=== PATIENT | male | born 1960 | race Caucasian/White ===

== ENCOUNTER 2016-11-25 20:26 | Emergency (ER) | payer SELFPAY ==
[~2016-11-25] VITALS: Ht 175.3 cm; Wt 73.6 kg
[~2016-11-25 20:26] MED LIST: IPRA17I INH; MUCI600T PO; PRED20 PO; SPIRCAP INH; THIA100T PO; ZITH250T PO
[2016-11-25 21:23] VITALS: BP 123/91; PULSE 93; RESP 20; TEMP 98.5; O2SAT 93
== END 2016-11-25 23:41 | disposition left against medical advice (07) ==
LOC: PHED 20:26
DX: F10.10 Alcohol abuse, uncomplicated (principal)
CPT/HCPCS: 99281

== ENCOUNTER 2017-05-03 02:56 | Emergency (ER) | payer SELFPAY ==
[~2017-05-03] VITALS: Ht 177.8 cm; Wt 75.0 kg
[2017-05-03 03:02] VITALS: BP 150/106; PULSE 77; RESP 18; TEMP 98.1; O2SAT 95
[2017-05-03] MEDS ORDERED: EXCETAB30 PO (03:10)
[2017-05-03] MEDS ORDERED: OMEP20TA PO (03:10)
[2017-05-03 03:16] LABS: AUTOMATED NEUTROPHIL # 6.6 TH/MM3 (1.8-7.7); BASOPHIL # 0.1 TH/MM3 (0-0.2); BASOPHIL % 0.7 % (0.0-2.0); EOSINOPHIL # 0.1 TH/MM3 (0-0.4); EOSINOPHIL % 0.7 % (0.0-4.0); HEMATOCRIT 45.7 % (39.0-51.0); LYMPH % 16.8 % (9.0-44.0); LYMPHOCYTE # 1.6 TH/MM3 (1.0-4.8); MEAN CELL VOLUME 97.8 FL (80.0-100.0); MEAN CORPUSCULAR HEMOGLOBIN 33.2 PG (27.0-34.0); MONO % 11.9 % (0.0-8.0); NEUT % 69.9 % (16.0-70.0); PLATELET COUNT 269 TH/MM3 (150-450); RED BLOOD COUNT 4.67 MIL/MM3 (4.50-5.90); RED CELL DISTRIBUTION WIDTH 14.6 % (11.6-17.2); WHITE BLOOD COUNT 9.5 TH/MM3 (4.0-11.0)
[2017-05-03 03:20] LABS: HEMO FLAGS AUTO DIFF
--- NOTE | 2017-05-03 03:24 | PD ---
HPI Chief Complaint: Abdominal Pain Time Seen by Provider: 02:58 Travel History International Travel<30 days: No Contact w/Intl Traveler<30days: No Traveled to known affect area: No History of Present Illness HPI 57-year-old male presents with couple day history of left upper quadrant abdominal pain. He states he has history of pancreatitis but that usually hurts on the right side and he'll have a fever with that and he started having no symptoms today. He denies other concurrent complaints. Quality of pain is sharp. Severity is moderate. He does note drinking some beers today secondary to the pain. He denies any migration of the pain. Presents by ambulance. PFSH Past Medical History Arthritis: Yes Anxiety: No Depression: No Cancer: No Cardiovascular Problems: No Congestive Heart Failure: No COPD: Yes Coronary Artery Disease: No Diabetes: No Diminished Hearing: No Endocrine: No Gastrointestinal Disorders: Yes Genitourinary: No Hypertension: No Immune Disorder: No Implanted Vascular Access Dvce: No Musculoskeletal: Yes Neurologic: No Psychiatric: No Reproductive: No Respiratory: Yes Pancreatitis: Yes Tetanus Vaccination: Unknown Influenza Vaccination: No Past Surgical History Other Surgery: No Social History Alcohol Use: Yes (daily) Tobacco Use: Yes (2 ppd for 15 years) Substance Use: No Allergies-Medications (Allergen,Severity, Reaction): Coded Allergies: No Known Allergies (Verified , 10/31/16) Reported Meds & Prescriptions Reported Meds & Active Scripts Active Tramadol (Tramadol HCl) 50 Mg Tab 50 Mg PO Q8H PRN Reported Excedrin Migraine Caplet (Aspirin/Acetaminophen/Caffeine) 1 Each Tablet 1 Tab PO DAILY Omeprazole 20 Mg Tab 20 Mg PO DAILY Review of Systems Except as stated in HPI: all other systems reviewed are Neg Physical Exam Narrative GENERAL: Well-nourished, well-developed patient. SKIN: Warm and dry. HEAD: Normocephalic and atraumatic. EYES: No injection or drainage. ENT: No nasal drainage noted. NECK: Supple, trachea midline. CARDIOVASCULAR: Regular rate and rhythm RESPIRATORY: no increased effort. No accessory muscle use. GASTROINTESTINAL: Abdomen soft, ttp luq, nondistended. no rebound NEUROLOGICAL: Awake and alert. moves all extremities. Normal speech. Data Data Last Documented VS Vital Signs Date Time Temp Pulse Resp B/P Pulse Ox O2 Delivery O2 Flow Rate FiO2 05/03/17 06:20 98 18 155/99 98 05/03/17 03:02 98.1 Orders Complete Blood Count With Diff (05/03/17 02:58) Comprehensive Metabolic Panel (05/03/17 02:58) Urinalysis - C+S If Indicated (05/03/17 02:58) Lipase (05/03/17 02:58) Ct Abd/Pel W Iv Contrast(Rout) (05/03/17 ) Iv Access Insert/Monitor (05/03/17 02:58) Iohexol 350 Inj (Omnipaque 350 Inj) (05/03/17 04:15) Acetaminophen (Tylenol) (05/03/17 05:45) Tramadol (Ultram) (05/03/17 06:30) Labs Laboratory Tests Test 05/03/17 05/03/17 02:00 03:05 White Blood Count 9.5 TH/MM3 Red Blood Count 4.67 MIL/MM3 Hemoglobin 15.5 GM/DL Hematocrit 45.7 % Mean Corpuscular Volume 97.8 FL Mean Corpuscular Hemoglobin 33.2 PG Mean Corpuscular Hemoglobin 34.0 % Concent Red Cell Distribution Width 14.6 % Platelet Count 269 TH/MM3 Mean Platelet Volume 7.8 FL Neutrophils (%) (Auto) 69.9 % Lymphocytes (%) (Auto) 16.8 % Monocytes (%) (Auto) 11.9 % Eosinophils (%) (Auto) 0.7 % Basophils (%) (Auto) 0.7 % Neutrophils # (Auto) 6.6 TH/MM3 Lymphocytes # (Auto) 1.6 TH/MM3 Monocytes # (Auto) 1.1 TH/MM3 Eosinophils # (Auto) 0.1 TH/MM3 Basophils # (Auto) 0.1 TH/MM3 CBC Comment AUTO DIFF Differential Comment AUTO DIFF CONFIRMED Platelet Estimate NORMAL Platelet Morphology Comment NORMAL Sodium Level 136 MEQ/L Potassium Level 3.4 MEQ/L Chloride Level 101 MEQ/L Carbon Dioxide Level 25.0 MEQ/L Anion Gap 10 MEQ/L Blood Urea Nitrogen 3 MG/DL Creatinine 0.71 MG/DL Estimat Glomerular Filtration 114 ML/MIN Rate Random Glucose 99 MG/DL Calcium Level 8.7 MG/DL Total Bilirubin 0.2 MG/DL Aspartate Amino Transf 19 U/L (AST/SGOT) Alanine Aminotransferase 19 U/L (ALT/SGPT) Alkaline Phosphatase 120 U/L Total Protein 6.6 GM/DL Albumin 2.9 GM/DL Lipase 167 U/L Urine Color LIGHT-YELLOW Urine Turbidity CLEAR Urine pH 5.5 Urine Specific [place] 1.003 Urine Protein NEG mg/dL Urine Glucose (UA) NEG mg/dL Urine Ketones NEG mg/dL Urine Occult Blood NEG Urine Nitrite NEG Urine Bilirubin NEG Urine Urobilinogen LESS THAN 2.0 MG/DL Urine Leukocyte Esterase NEG Urine WBC LESS THAN 1 /hpf Urine Mucus FEW /lpf Microscopic Urinalysis Comment CULT NOT INDICATED MDM Medical Decision Making Medical Screen Exam Complete: Yes Emergency Medical Condition: Yes Medical Record Reviewed: Yes (pmh confirmed) Interpretation(s) CBC & BMP Diagram 05/03/17 02:00 Last 24 hours Impressions Abdomen/Pelvis CT 05/03/17 0000 Signed Impressions: Service Date/Time: Friday, May 03, 2017 04:05 - CONCLUSION: 1. Chronic pancreatitis with calcifications in the head. There is dilatation of the pancreatic duct with mild indistinctness and inflammatory change most characteristic of superimposed acute pancreatitis. There is no distinct mass. 2. Ileus bowel gas pattern. 3. Steatosis of the liver. Sunny Horner MD Lipase is normal, discussed with radiologist CT findings and this could be appearance of his chronic findings given history of prior stent Differential Diagnosis Pancreatitis, gastritis, stone Narrative Course Will check blood work, urinalysis, CT scan abdominal pelvis and reevaluate ED workup with possible pancreatitis with normal lipase. steady gait, clear speech, Patient denies any new complaints and states that they are feeling better but waiting something to go home with. Patient happy with care, all questions answered. Patient knows that follow up is incumbent on them and to return to the emergency room immediately if new or worsening symptoms develop. Patient given strict return precautions, vitals reviewed and are normal, agrees to further workup as an outpatient. Diagnosis Primary Impression: Abdominal pain Qualified Code: R10.12 - Left upper quadrant pain Additional Impression: Pancreatitis Qualified Code: K86.1 - Chronic pancreatitis, unspecified pancreatitis type Patient Instructions: General Instructions Additional Instructions: tylenol and tramadol as needed, follow with primary friday, return as needed Med/Other Pt SpecificInfo: Prescription(s) given, No Change to Meds Scripts Tramadol 50 Mg Tab50 Mg PO Q8H PRN (PAIN) #10 TAB Ref 0 Prov:Valerie Rivera MD 05/03/17 Disposition: 01 DISCHARGE HOME Condition: Stable Valerie Rivera MD May 03, 2017 03:24
[2017-05-03 03:36] LABS: ALT (GPT) 19 U/L (12-78); ANION GAP 10 MEQ/L (5-15); AST (GOT) 19 U/L (15-37); BLOOD UREA NITROGEN 3 MG/DL (7-18); CHLORIDE 101 MEQ/L (98-107); GLOMERULAR FILTRATION RATE 114 ML/MIN (>89); POTASSIUM 3.4 MEQ/L (3.5-5.1); SODIUM (NA) 136 MEQ/L (136-145)
[2017-05-03 03:39] LABS: ALKALINE PHOSPHATASE 120 U/L (45-117); TOTAL BILIRUBIN ADULT 0.2 MG/DL (0.2-1.0)
[2017-05-03 04:06] LABS: BLOOD, URINE NEG (NEG); COMMENT (UR) CULT NOT INDICATED; CULTURE IF INDICATED CULT NOT INDICATED; GLUCOSE,URINE NEG (NEG); KETONE, URINE NEG (NEG); MUCUS URINE FEW /lpf (OCC); NITRITE,URINE NEG (NEG); PH, URINE 5.5 (5.0-8.5); URINE COLOR LIGHT-YELLOW (YELLW/STRAW)
[2017-05-03] MEDS ORDERED: IOHEXOL 350 MG/ML 10 ML VIAL (for RAD DIAG) IV ONE (04:15)
--- NOTE | 2017-05-03 04:32 | RADRPT ---
EXAM DATE/TIME: 05/03/2017 04:05 [facility] COMPARISON: No previous studies available for comparison. INDICATIONS : Abdominal pain. IV CONTRAST: 100 cc Omnipaque 350 (iohexol) IV ORAL CONTRAST: No oral contrast ingested. RADIATION DOSE: 7.75 CTDIvol (mGy) MEDICAL HISTORY : None SURGICAL HISTORY : None. ENCOUNTER: Initial ACUITY: 1 day PAIN SCALE: 5/10 LOCATION: abdomen TECHNIQUE: Volumetric scanning of the abdomen and pelvis was performed. Using automated exposure control and ad justment of the mA and/or kV according to patient size, radiation dose was kept as low as reasonably achievable to obtain optimal diagnostic quality images. FINDINGS: LOWER LUNGS: The visualized lower lungs are clear. LIVER: Homogeneous density without lesion. There is no dilation of the biliary tree. No calcified gallston es. There is steatosis of the liver. SPLEEN: Normal size without lesion. PANCREAS: There are multiple calcifications in the head of the pancreas. Pancreatic duct is dilated measuring u p to approximately 9 mm. There is mild inflammatory change and indistinctness surrounding the head an d body of the pancreas. KIDNEYS: Normal in size and shape. There is no mass, stone or hydronephrosis. ADRENAL GLANDS: Within normal limits. VASCULAR: There is no aortic aneurysm. Atherosclerotic change is noted with calcified plaque. BOWEL/MESENTERY: There is mild gaseous distention of the transverse colon and descending colon. There are multiple sma ll air-fluid levels. There is no focal wall thickening or inflammatory change. There is no free intra peritoneal air or fluid. ABDOMINAL WALL: Within normal limits. RETROPERITONEUM: There is no lymphadenopathy. BLADDER: No wall thickening or mass. REPRODUCTIVE: Within normal limits. INGUINAL: There is no lymphadenopathy or hernia. MUSCULOSKELETAL: Within normal limits for patient age. CONCLUSION: 1. Chronic pancreatitis with calcifications in the head. There is dilatation of the pancreatic duct w ith mild indistinctness and inflammatory change most characteristic of superimposed acute pancreatiti s. There is no distinct mass. 2. Ileus bowel gas pattern. 3. Steatosis of the liver. Sunny Horner MD on May 03, 2017 at 4:27 Board Certified Radiologist. This report was verified electronically.
[2017-05-03 05:15] LABS: PLATELET ESTIMATE SMEAR NORMAL (NORMAL); PLATELET MORPHOLOGY NORMAL (NORMAL); SCAN/DIFF AUTO DIFF CONFIRMED
[2017-05-03] MEDS ORDERED: ACETAMINOPHEN 325 MG TAB PO ONE (05:45)
[2017-05-03] MEDS ORDERED: TRAM50TA PO (06:15)
[2017-05-03 06:20] VITALS: BP 155/99
[2017-05-03] MEDS ORDERED: traMADol HCL 50 MG TAB PO ONE (06:30)
== END 2017-05-03 06:26 | disposition home or self-care (01) ==
LOC: NEPC 02:56
DX: R10.12 Left upper quadrant pain (principal); K86.1 Other chronic pancreatitis; F17.210 Nicotine dependence, cigarettes, uncomplicated
CPT/HCPCS: 74177; 80053; 81001; 83690; 85025; 99284; Q9967

== ENCOUNTER 2017-05-09 10:26 | Emergency (ER) | payer SELFPAY ==
[~2017-05-09] VITALS: Ht 177.8 cm; Wt 69.8 kg
[~2017-05-09 10:26] MED LIST changes: +EXCETAB30 PO; -IPRA17I INH; -MUCI600T PO; +OMEP20TA PO; -PRED20 PO; -SPIRCAP INH; -THIA100T PO; +TRAM50TA PO; -ZITH250T PO
[2017-05-09 11:00] VITALS: BP 132/85; PULSE 74; RESP 16; TEMP 98.4; O2SAT 96
[2017-05-09] MEDS ORDERED: SODIUM CHLOR 0.9% 1000 ML INJ 1,000 ML IV SCH (11:25)
[2017-05-09] MEDS ORDERED: SODIUM CHLORIDE 0.9% FLUSH 10 ML FLUSH IV FLUSH PRN (11:30)
[2017-05-09] MEDS ORDERED: ONDANSETRON HCL 4 MG/2 ML VIAL IVP ONE (11:30)
[2017-05-09] MEDS ORDERED: HYDROmorphone HCL PF 2 MG/ML VIAL IVS ONE (11:30)
--- NOTE | 2017-05-09 11:39 | PD ---
HPI Chief Complaint: Abdominal Pain Time Seen by Provider: 11:25 Travel History International Travel<30 days: No Contact w/Intl Traveler<30days: No Traveled to known affect area: No History of Present Illness HPI ONSET OF SIMILAR ABDOMINAL PAIN IN PAST DX PANCREATITIS, BUT THIS EPISODE STARTED SINCE MIDNIGHT , WITH NAUSEA BUT SO FAR NO VOMITING PFSH Past Medical History Arthritis: Yes Anxiety: No Depression: No Cancer: No Cardiovascular Problems: No Congestive Heart Failure: No COPD: Yes Coronary Artery Disease: No Diabetes: No Diminished Hearing: No Endocrine: No Gastrointestinal Disorders: Yes Genitourinary: No Hypertension: No Immune Disorder: No Implanted Vascular Access Dvce: No Musculoskeletal: Yes Neurologic: No Psychiatric: No Reproductive: No Respiratory: Yes (copd) Pancreatitis: Yes Past Surgical History Other Surgery: No Social History Alcohol Use: Yes (daily) Tobacco Use: Yes (2 ppd for 15 years) Substance Use: No Allergies-Medications (Allergen,Severity, Reaction): Coded Allergies: No Known Allergies (Verified , 05/09/17) Reported Meds & Prescriptions Reported Meds & Active Scripts Active Reported Excedrin Extra Strength (Wdbnyrt-Hjfdrdmyzfvaa-Gofurjmk) 1 Tab Tab 1 Tab PO DIRECTED Omeprazole 20 Mg Tab 20 Mg PO DAILY Review of Systems Except as stated in HPI: all other systems reviewed are Neg Gastrointestinal: Positive: Nausea, Abdominal Pain Physical Exam Narrative GENERAL: SKIN: Warm and dry. HEAD: Atraumatic. Normocephalic. EYES: Pupils equal and round. No scleral icterus. No injection or drainage. ENT: No nasal bleeding or discharge. Mucous membranes pink and moist. NECK: Trachea midline. No JVD. CARDIOVASCULAR: Regular rate and rhythm. RESPIRATORY: No accessory muscle use. Clear to auscultation. Breath sounds equal bilaterally. GASTROINTESTINAL: Abdomen soft, MILDLY TENDER DIFFUSELY, nondistended. MUSCULOSKELETAL: Extremities without clubbing, cyanosis, or edema. No obvious deformities. NEUROLOGICAL: Awake and alert. No obvious cranial nerve deficits. Motor grossly within normal limits. Five out of 5 muscle strength in the arms and legs. Normal speech. PSYCHIATRIC: Appropriate mood and affect; insight and judgment normal. Data Data Last Documented VS Vital Signs Date Time Temp Pulse Resp B/P Pulse Ox O2 Delivery O2 Flow Rate FiO2 05/09/17 12:56 67 18 136/87 97 Nasal Cannula 2 05/09/17 11:00 98.4 Orders Urinalysis - C+S If Indicated (05/09/17 10:53) Complete Blood Count With Diff (05/09/17 11:25) Comprehensive Metabolic Panel (05/09/17 11:25) Lipase (05/09/17 11:25) Iv Access Insert/Monitor (05/09/17 11:25) Ecg Monitoring (05/09/17 11:25) Oximetry (05/09/17 11:25) Hydromorphone Pf Inj (Dilaudid Pf Inj) (05/09/17 11:30) Ondansetron Inj (Zofran Inj) (05/09/17 11:30) Sodium Chlor 0.9% 1000 Ml Inj (Ns 1000 M (05/09/17 11:25) Sodium Chloride 0.9% Flush (Ns Flush) (05/09/17 11:30) Electrocardiogram (05/09/17 11:25) Urine Culture (05/09/17 12:00) Abdomen, Flat & Upright (05/09/17 13:13) Labs Laboratory Tests Test 05/09/17 05/09/17 11:40 12:00 White Blood Count 18.6 TH/MM3 Red Blood Count 4.74 MIL/MM3 Hemoglobin 15.2 GM/DL Hematocrit 46.2 % Mean Corpuscular Volume 97.5 FL Mean Corpuscular Hemoglobin 32.1 PG Mean Corpuscular Hemoglobin 32.9 % Concent Red Cell Distribution Width 14.0 % Platelet Count 404 TH/MM3 Mean Platelet Volume 7.3 FL Neutrophils (%) (Auto) 86.0 % Lymphocytes (%) (Auto) 5.0 % Monocytes (%) (Auto) 6.7 % Eosinophils (%) (Auto) 0.1 % Basophils (%) (Auto) 2.2 % Neutrophils # (Auto) 16.1 TH/MM3 Lymphocytes # (Auto) 0.9 TH/MM3 Monocytes # (Auto) 1.2 TH/MM3 Eosinophils # (Auto) 0.0 TH/MM3 Basophils # (Auto) 0.4 TH/MM3 CBC Comment DIFF FINAL Differential Comment Sodium Level 142 MEQ/L Potassium Level 3.5 MEQ/L Chloride Level 106 MEQ/L Carbon Dioxide Level 26.1 MEQ/L Anion Gap 10 MEQ/L Blood Urea Nitrogen 4 MG/DL Creatinine 0.80 MG/DL Estimat Glomerular Filtration 99 ML/MIN Rate Random Glucose 155 MG/DL Calcium Level 8.8 MG/DL Total Bilirubin 0.4 MG/DL Aspartate Amino Transf 75 U/L (AST/SGOT) Alanine Aminotransferase 81 U/L (ALT/SGPT) Alkaline Phosphatase 510 U/L Total Protein 6.8 GM/DL Albumin 2.9 GM/DL Lipase 154 U/L Urine Collection Type CLEAN CATCH Urine Color YELLOW Urine Turbidity CLEAR Urine pH 5.5 Urine Specific [place] 1.030 Urine Protein 30 mg/dL Urine Glucose (UA) NEG mg/dL Urine Ketones NEG mg/dL Urine Occult Blood NEG Urine Nitrite NEG Urine Bilirubin NEG Urine Leukocyte Esterase TRACE Urine WBC 9-14 /hpf Urine Squamous Epithelial 0-5 /hpf Cells Urine Mucus OCC /lpf Microscopic Urinalysis Comment CULTURE INDICATED Urine Collection Time 12:00 [facility] Medical Decision Making Medical Screen Exam Complete: Yes Emergency Medical Condition: Yes Medical Record Reviewed: Yes Differential Diagnosis PANCREATITIS, SBO, CHRONIC ABD PAIN, ATYPICAL CO, Narrative Course NO EVIDENCE OF PANCREATITIS, CO OR BOWEL OBSTRUCTION, PATIENT TOLERATED PO WELL , WILL DC WITH MILD ILEUS Diagnosis Primary Impression: MILD ILEUS Patient Instructions: Clear Liquid Diet (ED), General Instructions Scripts Codeine-Acetaminophen 30-300 mg Tab1 Tab PO Q4H PRN (PAIN) #15 TAB Ref 0 Prov:Paul Farrell MD 05/09/17 Metoclopramide (Reglan)10 Mg Tab10 Mg PO QID #24 TAB Ref 0 Prov:Paul Farrell MD 05/09/17 Disposition: 01 DISCHARGE HOME Condition: Stable Paul Farrell MD May 09, 2017 11:39
[2017-05-09 11:40] VITALS: BP 120/86; PULSE 77; RESP 18; O2SAT 92; O2SAT 95
[2017-05-09 11:49] LABS: AUTOMATED NEUTROPHIL # 16.1 TH/MM3 (1.8-7.7); BASOPHIL # 0.4 TH/MM3 (0-0.2); BASOPHIL % 2.2 % (0.0-2.0); EOSINOPHIL % 0.1 % (0.0-4.0); HEMATOCRIT 46.2 % (39.0-51.0); LYMPHOCYTE # 0.9 TH/MM3 (1.0-4.8); MEAN CELL VOLUME 97.5 FL (80.0-100.0); MEAN CORPUSCULAR HEMOGLOBIN 32.1 PG (27.0-34.0); MEAN CORPUSCULAR HGB CONC 32.9 % (32.0-36.0); MONO % 6.7 % (0.0-8.0); PLATELET COUNT 404 TH/MM3 (150-450); RED BLOOD COUNT 4.74 MIL/MM3 (4.50-5.90); WHITE BLOOD COUNT 18.6 TH/MM3 (4.0-11.0)
[2017-05-09 11:50] LABS: HEMO FLAGS DIFF FINAL
[2017-05-09] MEDS ORDERED: ASPI1TAB93 PO (12:02)
[2017-05-09 12:04] LABS: CHLORIDE 106 MEQ/L (98-107); POTASSIUM 3.5 MEQ/L (3.5-5.1); SODIUM (NA) 142 MEQ/L (136-145)
[2017-05-09 12:08] LABS: ANION GAP 10 MEQ/L (5-15); BICARBONATE 26.1 MEQ/L (21.0-32.0); BLOOD UREA NITROGEN 4 MG/DL (7-18)
[2017-05-09 12:11] LABS: ALT (GPT) 81 U/L (12-78); AST (GOT) 75 U/L (15-37); GLOMERULAR FILTRATION RATE 99 ML/MIN (>89)
[2017-05-09 12:12] LABS: TOTAL BILIRUBIN ADULT 0.4 MG/DL (0.2-1.0)
[2017-05-09 12:12] LABS: BLOOD, URINE NEG (NEG); GLUCOSE,URINE NEG (NEG); KETONE, URINE NEG (NEG); NITRITE,URINE NEG (NEG); PH, URINE 5.5 (5.0-8.5)
[2017-05-09 12:14] LABS: ALKALINE PHOSPHATASE 510 U/L (45-117)
[2017-05-09 12:19] LABS: COMMENT (UR) CULTURE INDICATED; CULTURE IF INDICATED CULTURE INDICATED; METHOD OF COLLECTION CLEAN CATCH; MUCUS URINE OCC /lpf (OCC); SQUAMOUS EPITHELIAL CELL URINE 0-5 /hpf (0-5); URINE COLOR YELLOW (YELLW/STRAW)
[2017-05-09 12:56] VITALS: BP 136/87; PULSE 67; RESP 18; O2SAT 97
--- NOTE | 2017-05-09 14:41 | RADHPO ---
EXAM DATE/TIME: 05/09/2017 13:22 [facility] COMPARISON: CT ABDOMEN & PELVIS W CONTRAST, May 03, 2017, 4:05. INDICATIONS : Complains of abdominal pain. MEDICAL HISTORY : None. SURGICAL HISTORY : None. ENCOUNTER: Initial ACUITY: 4 - 6 days PAIN SCORE: 8/10 LOCATION: Abdomen FINDINGS: Air filled mildly dilated loops of colon are noted suggesting probable ileus. Clinical correlation is recommended. No free intraperitoneal air is noted. Degenerative changes and scoliosis of the lumbar spine are noted. Mild degenerative changes are noted involving the hip joints bilaterally. CONCLUSION: 1. Mild air-filled dilatation of the colon suggesting probable ileus. Clinical correlation is recomme nded. 2. Degenerative changes and scoliosis of the lumbar spine. 3. Degenerative changes involving the hip joints bilaterally. Artur Fuentes MD on May 09, 2017 at 14:31 Board Certified Radiologist. This report was verified electronically.
[2017-05-09] MEDS ORDERED: CODE30TA2 PO (14:54)
[2017-05-09] MEDS ORDERED: REGL10TA5 PO (14:54)
[2017-05-09] MEDS ORDERED: ULTR50TA5 PO (15:02)
[2017-05-09 15:11] VITALS: BP 140/87
--- NOTE | 2017-05-09 23:03 | EKG ---
Date Performed: 05/09/2017 Time Performed: 11:32:32 PTAGE: 57 years EKG: Sinus rhythm WITH FIRST DEGREE AV BLOCK POSSIBLE LEFT ATRIAL ENLARGEMENT INTRAVENTRICULAR CONDUCTION DELAY ABNORM AL ECG PREVIOUS TRACING : 10/31/2016 21.44 DOCTOR: Judie Small Interpretating Date/Time 05/09/2017 23:02:15
== END 2017-05-09 15:13 | disposition home or self-care (01) ==
LOC: PHED 10:26
DX: K56.7 Ileus, unspecified (principal); J44.9 Chronic obstructive pulmonary disease, unspecified; F17.210 Nicotine dependence, cigarettes, uncomplicated; R94.31 Abnormal electrocardiogram [ECG] [EKG]; I44.0 Atrioventricular block, first degree
CPT/HCPCS: 74020; 80053; 81001; 83690; 85025; 87086; 93005; 96361; 96374; 96375; 99285; J1170; J2405; J7030